=== PATIENT | female | born 1945 | race Caucasian/White ===

== ENCOUNTER → 2017-03-07 | Outpatient (CLI) | payer MEDICARE ==
--- NOTE | 2017-03-08 16:18 | BD ---
EXAMINATION TYPE: MG DEXA axial skeleton. DATE OF EXAM: 03/07/2017 COMPARISON: NONE CLINICAL HISTORY: Osteoporosis. Post menopausal female. Height: 5 FT 1 IN Weight: 181 FRAX RISK QUESTIONS: Alcohol (3 or more units per day): NO Family History (Parent hip fracture): NO Glucocorticoids (More than 3mos): NO (Ex: prednisone, prednisolone, methylprednisolone, dexamethasone, and hydrocortisone). History of Fracture in Adulthood: YES Secondary Osteoporosis: 1. Type 1 Diabetes: NO 2. Hyperthyroidism: NO 3. Menopause before 45: NO 4. Malnutrition: NO 5. Chronic liver disease: NO Rheumatoid Arthritis: NO Current Tobacco Use: NO RISK FACTORS HISTORY OF: Active: YES Postmenopausal woman: BETWEEN AGE 45-50 MEDICATIONS: Additional Medications: LASIX,METOPROLOL, MULTI VIT, B 12 Additional History: EXAM MEASUREMENTS: Bone mineral densitometry was performed using the [employer] System. Bone mineral density as measured about the Lumbar spine is: ----- L1-L4(G/cm2): 0.802 T Score Values are as follows: ----- L2: -4.1 ----- L3: -3.1 ----- L4: -2.5 ----- L1-L4: -3.2 Bone mineral density has: Decreased -12.3% since study of: 2013 Bone mineral density about the R hip (g/cm2): 0.595 Bone mineral density about the L hip (g/cm2): 0.642 T Score values are as follows: -----R Neck: -3.2 -----L Neck: -2.8 -----R Total: -2.1 -----L Total: -2.2 Bone mineral density has: Decreased -6.5% since study of: 2013 IMPRESSION: 1. Osteoporosis (T Score less than -2.5) as noted by T Score values at the right femoral neck and lum bar spine There is increased fracture risk and therapy is usually indicated based on age. Re-Screen 1-2 years. 2. Osteopenia (T Score between -2.5 and -1) as noted by T score values at the left femoral neck. There is slightly increased risk of fracture and the patient may be considered for treatment. Re-Screen 2-5 years. NOTE: T-SCORE=SD OF THE YOUNG ADULT MEAN.
--- NOTE | 2017-03-09 12:01 | MM ---
Reason for exam: screening (asymptomatic). Last mammogram was performed 3 years and 1 month ago. History: Patient is postmenopausal. Benign excisional biopsy of the left breast, 1996. Physical Findings: A clinical breast exam by your physician is recommended on an annual basis and results should be correlated with mammographic findings. MG Screening Mammo w CAD Bilateral CC, MLO, and XCCL view(s) were taken. Prior study comparison: January 28, 2014, bilateral MG screening mammo w CAD. July 12, 2011, bilateral digital screening mammo w/CAD. There are scattered fibroglandular densities. No suspicious abnormality. No significant changes when compared with prior studies. ASSESSMENT: Negative, BI-RAD 1 RECOMMENDATION: Routine screening mammogram of both breasts in 1 year.
== END | disposition home or self-care (01) ==
LOC: RADBDWWP 13:52
PROVIDERS: ATTEND Obstetrics & Gynecology
DX: Z12.31 Encounter for screening mammogram for malignant neoplasm of breast (principal); M85.88 Other specified disorders of bone density and structure, other site; M81.8 Other osteoporosis without current pathological fracture
CPT/HCPCS: 77080; G0202